=== PATIENT | female | born 1945 | race African-American/Black ===

== ENCOUNTER → 2023-05-30 | Outpatient (CLI) | payer OTHER, MEDICAID ==
[~2023-05-30] MED LIST: BUPIVACAINE HCL 0.25% P/F 10 ML VIAL ONE; IOHEXOL 300 MG/ML 100ML BOTTLE IJ ONE; LIDOCAINE 2%HCL (LOCAL ANESTH.) INJ 10ml MDV ONE; methylPREDNISolone ACETATE 80 MG/ML VL ONE
== END | disposition home or self-care (01) ==
LOC: XYW 09:28
PROVIDERS: ATTEND Orthopaedic Surgery Sports Medicine
DX: M25.511 Pain in right shoulder (principal)
CPT/HCPCS: 20610; 73020; 77002; J1040; J2001; J3490; Q9967

== ENCOUNTER 2025-06-29 13:11 | Outpatient (CLI) | payer OTHER, MEDICAID ==
[~2025-06-29 13:11] MED LIST changes: +BACL10TA PO; -BUPIVACAINE HCL 0.25% P/F 10 ML VIAL ONE; -IOHEXOL 300 MG/ML 100ML BOTTLE IJ ONE; -LIDOCAINE 2%HCL (LOCAL ANESTH.) INJ 10ml MDV ONE; +METH4PAK PO; -methylPREDNISolone ACETATE 80 MG/ML VL ONE
[2025-06-29 14:06] LABS: Base Excess 0.4 mmol/L (-2.0-3.0)
== END 2025-06-29 17:00 | disposition home or self-care (01) ==
LOC: RT 13:11
PROVIDERS: ATTEND Nurse Practitioner Family
DX: R06.02 Shortness of breath (principal)
CPT/HCPCS: 36600; 82805

== ENCOUNTER 2025-07-31 12:01 | Emergency (ER) | payer OTHER, MEDICAID ==
[~2025-07-31] VITALS: Ht 160 cm; Wt 77.1 kg
--- NOTE | 2025-07-31 12:27 | ED.PDOC ---
SOB-HPI HPI Comments 80 year old female with PMHx CHF, HTN presents to the ED with a chief complaint of cough onset 1 month. Patient states she has been experiencing cough, nasal congestion, shortness of breath for the past month. Has seen PCP, was sent for CXR with negative results. Patient states symptoms have worsened. Upon ED arrival O2 sat was 90% on RA, was placed on 2L improved to 97%. Denies nausea, vomiting, diarrhea, headache, dizziness, chest pain, fever, chills, sore throat, dysuria, hematuria. No other symptoms or modifying factors present at this time. Chief Complaint: Cough Time Seen by MD: 12:20 Primary Care Provider: EDYTA Marroquin notes: Medications, Allergies Information Source: Patient Mode of Arrival: Ambulatory Severity: Moderate Timing: Months Duration: Since onset Context: At Rest PE Risk Factors: None History of: CHF Prehospital treatment: None Modifying Factors: Nothing Associated Signs and Symptoms: Nasal Congestion Past Medical History PAST MEDICAL HISTORY: CHF, HTN Surgical History: Denies all surgeries VACATION GUIDE History: No Pertinent VACATION GUIDE History Family History Family History: Unknown Social History Smoker: Non-Smoker Alcohol: Denies ETOH Use Drugs: Denies Drug Use Lives In: Home Constitutional: denies: chills, diaphoresis, fatigue, fever, malaise, sweats, weakness, others EENTM: reports: nose congestion; denies: blurred vision, double vision, ear bleeding, ear discharge, ear drainage, ear pain, ear ringing, eye pain, eye redness, hearing loss, mouth pain, mouth swelling, nasal discharge, nose bleeding, nose pain, photophobia, tearing, throat pain, throat swelling, voice changes, others Respiratory: reports: shortness of breath; denies: cough, hemoptysis, orthopnea, SOB at rest, SOB with excertion, stridor, wheezing, others Cardiovascular: denies: chest pain, dizzy spells, diaphoresis, Dyspnea on exertion, edema, irregular heart beat, left arm pain, lightheadedness, palpitations, PND, syncope, others Gastrointestinal: denies: abdomen distended, abdominal pain, blood streaked bowels, constipated, diarrhea, dysphagia, difficulty swallowing, hematemesis, melena, nausea, poor appetite, poor fluid intake, rectal bleeding, rectal pain, vomiting, others Genitourinary: denies: abnormal vagina bleeding, burning, dyspareunia, dysuria, flank pain, frequency, hematuria, incontinence, pain, , vagina discharge, urgency, others Neurological: denies: dizziness, fainting, headache, left sided numbness, left sided weakness, numbness, paresthesia, pre-existing deficit, right sided numbness, right sided weakness, seizure, speech problems, tingling, tremors, weakness, others Musculoskeletal: denies: back pain, gout, joint pain, joint swelling, muscle pain, muscle stiffness, neck pain, others Integumetry: denies: bruises, change in color, change in hair/nails, dryness, laceration, lesions, lumps, rash, wounds, others Allergic/Immunocompromised: denies: Difficulty Healing, Frequent Infections, Hives, Itching, others Hematologic/Lymphatic: denies: anemia, blood clots, easy bleeding, easy bruising, swollen glands, others Endocrine: denies: excessive hunger, excessive sweating, excessive thirst, excessive urination, flushing, intolerance to cold, intolerance to heat, unexplained weight gain, unexplained weight loss, others Psychiatric: denies: anxiety, bipolar disorder, depression, hopeless, panic disorder, schizophrenia, sleepless, suicidal, others All Other Systems: Reviewed and Negative Physical Exam General Appearance: Moderate Distress, Normal HEENT: Normal ENT Inspection, Pharynx Normal, TMs Normal Neck: Full Range of Motion, Non-Tender, Normal, Normal Inspection Respiratory: Accessory Muscle Use, Chest Non-Tender, Respiratory Distress, Other (Coarse breath sounds) Cardiovascular: No Edema, No JVD, No Murmur, No Gallop, Normal Peripheral Pulses, Regular Rate/Rhythm Breast Exam: Deferred Gastrointestinal: No Organomegaly, Non Tender, No Pulsatile Mass, Normal Bowel Sounds, Soft Genitalia: Deferred Pelvic: Deferred Rectal: Deferred Extremities: No calf tenderness, Normal capillary refill, Normal inspection, Normal range of motion, Non-tender, No pedal edema Musculoskeletal : Apperance: Normal Neurologic: Alert, log sorter II-XII nml as Tested, No Motor Deficits, Normal Affect, Normal Mood, No Sensory Deficits Cerebellar Function: NOT DONE Reflexes: NOT DONE Skin: Dry, Normal Color, Warm Peripheral Pulses: 3+ Radial (R), 3+ Radial (L) Lymphatic: No Adenopathy Was a procedure done? Was a procedure done?: No Differential Dx Differential Diagnosis: Anxiety, Asthma, Bronchitis X-Ray, Labs, Meds, VS Vital Signs Date Time Temp Pulse Resp B/P (MAP) Pulse Ox O2 Delivery O2 Flow Rate FiO2 07/31/25 12:28 98.4 71 17 147/57 (87) 96 98.4 07/31/25 12:28 96 Nasal Cannula 2.0 07/31/25 12:08 98.1 72 20 188/79 90 98.1 Lab Test 07/31/25 14:09 07/31/25 12:23 Range/Units Urine Color Pending Urine Clarity Pending Urine pH Pending Urine Specific Talmage Pending Urine Protein Pending Urine Ketones Pending Urine Blood Pending Urine Nitrite Pending Urine Bilirubin Pending Urine Urobilinogen Pending Urine Leukocyte Esterase Pending Urine RBC Pending Urine Microscopic WBC Pending Urine Squamous Epithelial Cells Pending Urine Bacteria Pending Urine Glucose Pending White Blood Count 11.9 H 4.4-10.8 10^3/uL Red Blood Count 4.44 4.0-5.20 10^6/uL Hemoglobin 12.3 12.2-16.2 g/dL Hematocrit 37.6 36.0-46.0 % Mean Corpuscular Volume 84.6 80.0-100.0 fL Mean Corpuscular Hemoglobin 27.7 L 28.0-32.0 pg Mean Corpuscular Hemoglobin Concent 32.7 32.0-36.0 g/dL Red Cell Distribution Width 15.0 H 11.8-14.3 % Platelet Count 269 140-450 10^3/uL Mean Platelet Volume 9.1 6.9-10.8 fL Neutrophils (%) (Auto) 68.0 37.0-80.0 % Lymphocytes (%) (Auto) 21.0 10.0-50.0 % Monocytes (%) (Auto) 10.0 0.0-12.0 % Eosinophils (%) (Auto) 0.5 0.0-7.0 % Basophils (%) (Auto) 0.5 0.0-2.0 % Neutrophils # (Auto) 8.1 1.6-8.6 10 ^3/uL Lymphocytes # (Auto) 2.5 0.4-5.4 10 ^3/uL Monocytes # (Auto) 1.2 0-1.3 10 ^3/uL Eosinophils # (Auto) 0.1 0-0.8 10 ^3/uL Basophils # (Auto) 0.1 0-0.2 10 ^3/uL Nucleated Red Blood Cells 0.1 % Sodium Level 144 136-145 mmol/L Potassium Level 4.0 3.5-5.1 mmol/L Chloride Level 105 98-107 mmol/L Carbon Dioxide Level 30 20-31 mmol/L Anion Gap 9 5-15 Blood Urea Nitrogen 30 H 9-23 mg/dL Creatinine 1.20 H 0.550-1.02 mg/dL Glomerular Filtration Rate Calc 46 >90 mL/min BUN/Creatinine Ratio 25.0 H 10.0-20.0 Serum Glucose 118 H 74-106 mg/dL Calcium Level 9.6 8.7-10.4 mg/dL Troponin I High Sensitivity 12 </=34 ng/L Current Medications Medications (Trade) Dose Ordered Sig/Cydney Route Start Time Stop Time Status Last Admin Methylprednisolone Sodium Succinate (Solu Medrol) 125 mg ONCE ONCE IV 07/31/25 13:30 07/31/25 13:31 DC 07/31/25 14:01 Ceftriaxone Sodium 50 ml @ 100 mls/hr ONCE ONCE IV 07/31/25 13:30 07/31/25 13:59 DC 07/31/25 14:06 Patient alert. Placed on oxygen. Complaining of shortness a breath. Blood pressure slightly elevated. Cardiac marker within normal limits. Renal function elevated. WBC elevated. Possible pneumonia. Possible pneumonitis. Continue oxygen. Was given steroid. Was given Lasix. Acute respiratory distress. Explained to the patient. Continue monitoring .[place] [address] Ph: [phone] DIAGNOSTIC IMAGING Diagnostic Imaging Report : [id number] Signed PATIENT: CAROL LOUIS ACCT: [id number] UNIT: [id number] : 1945 LOC: ER ROOM / BED: / AGE / SEX: 80 / F ADM STATUS: REG ER SERVICE 1213 ORDERING PHYSICIAN: ERNESTO PERRY MD PROCEDURE(s): CXRP - CHEST PORTABLE REASON: cough ORDER NUMBER(s): [id number], ACCESSION NUMBER(s): [id number] CHEST RADIOGRAPH INDICATION: cough TECHNIQUE: Single frontal view of the chest was obtained COMPARISON: None FINDINGS: Lines and Tubes: None Lungs: Mildly increased interstitial markings both lung bases. Pleura: No effusion. No pneumothorax. Cardiomediastinal contours: Moderate cardiomegaly. Moderate calcification of the aortic knob. Bones: Unremarkable IMPRESSION: 1. Moderate cardiomegaly with mildly increased interstitial markings in both lung bases. ATED BY: SYLVESTER STAFFORD MD DICTATED DATE/TIME: 07/31/25 140 SIGNED BY: SYLVESTER STAFFORD MD SIGNED DATE/TIME: 07/31/25 140 CC: Time of 1ST Reevaluation: 12:50 Reevaluation 1ST: Unchanged Patient Education/Counseling: Diagnosis, Treatment, Prognosis Family Education/Counseling: No Family Present SEPSIS Sepsis Screen Date sepsis recognized/suspect: Jul 31, 2025 Time Sepsis recognized/suspect: 1210 Recent Procedure: No On Antibiotic Therapy: No Respiratory Rate >20: No Heart Rate >90: No Temp<36 C (96.8 F) or >38.3 C: No SBP <90 or MAP <65 mmHG: No New Acute Mental Status Change: No Is the patient on CPAP, BIPAP,: No Physician Orders Chest Portable (07/31/25 12:13) Urinalysis (07/31/25 12:13) Blood Culture (07/31/25 13:18) Lactic Acid W/ Reflex Order (07/31/25 13:18) Azithromycin 500mg/250ml (Zithromax 500m (07/31/25 13:30) Vital Signs Date Time Temp Pulse Resp B/P (MAP) Pulse Ox O2 Delivery O2 Flow Rate FiO2 07/31/25 12:28 98.4 71 17 147/57 (87) 96 98.4 07/31/25 12:28 96 Nasal Cannula 2.0 07/31/25 12:08 98.1 72 20 188/79 90 98.1 Laboratory Tests Test 07/31/25 12:23 White Blood Count 11.9 10^3/uL (4.4-10.8) H Medications Medications Dose Ordered Sig/Cydney Route Start Time Stop Time Status Last Admin Dose Admin Ceftriaxone Sodium 50 ml @ 100 mls/hr ONCE ONCE IV 07/31/25 13:30 07/31/25 13:59 DC 07/31/25 14:06 Methylprednisolone Sodium Succinate 125 mg ONCE ONCE IV 07/31/25 13:30 07/31/25 13:31 DC 07/31/25 14:01 Departure 1 Departure Time of Disposition: 13:34 Impression: Primary Impression: CHF (congestive heart failure) Qualified Codes: I50.43 - Acute on chronic combined systolic (congestive) and diastolic (congestive) heart failure Additional Impressions: Chronic kidney disease, stage III (moderate) Qualified Codes: N18.30 - Chronic kidney disease, stage 3 unspecified Acute respiratory failure Qualified Codes: J96.01 - Acute respiratory failure with hypoxia Hypertensive urgency Disposition: ADMITTED INPATIENT Admit to: Med Surg Condition: Guarded Critical Care Note Critical Care Time?: Yes (90 min-critical care time only) Stability Stability form required: No Heart Score Heart Score: Heart Score Response (Comments) Value History Slightly Suspicious 0 EKG Normal 0 Age >65 2 Risk Factors >3 or Hx ASHD 2 Troponin Normal limit 0 Total 4 I personally scribed for ERNESOT PERRY MD ([email or web address]) on 07/31/25 at 12:27. Electronically submitted by Rosie Gallagher ([email or web address]). I personally scribed for ERNESTO PERRY MD ([email or web address]) on 07/31/25 at 14:11. Electronically submitted by Rosie Gallagher ([email or web address]). ERNESTO PERRY MD Jul 31, 2025 12:27
[2025-07-31 12:28] VITALS: BP 147/57; PULSE 71; TEMP 98.4
[2025-07-31 12:39] LABS: Hematocrit 37.6 % (36.0-46.0); Hemoglobin 12.3 g/dL (12.2-16.2); Mean Corpuscular Hemoglobin 27.7 pg (28.0-32.0); Mean Corpuscular Volume 84.6 fL (80.0-100.0); Nucleated Red Blood Cells % 0.1 %
[2025-07-31 12:49] LABS: Chloride 105 mmol/L (98-107); Potassium 4.0 mmol/L (3.5-5.1); Sodium 144 mmol/L (136-145)
[2025-07-31 12:50] LABS: Anion Gap 9 (5-15); Calcium 9.6 mg/dL (8.7-10.4); Carbon Dioxide 30 mmol/L (20-31)
[2025-07-31 12:55] LABS: BUN/Creatinine Ratio 25.0 (10.0-20.0)
[2025-07-31 12:56] LABS: Blood Urea Nitrogen 30 mg/dL (9-23); Glucose 118 mg/dL (74-106)
[2025-07-31] MEDS: methylPREDNISolone SOD SUCC 125 MG/2 ML VL IV ONE (14:01)
--- NOTE | 2025-07-31 14:03 | DVH ---
CHEST RADIOGRAPH INDICATION: cough TECHNIQUE: Single frontal view of the chest was obtained COMPARISON: None FINDINGS: Lines and Tubes: None Lungs: Mildly increased interstitial markings both lung bases. Pleura: No effusion. No pneumothorax. Cardiomediastinal contours: Moderate cardiomegaly. Moderate calcification of the aortic knob. Bones: Unremarkable IMPRESSION: 1. Moderate cardiomegaly with mildly increased interstitial markings in both lung bases.
[2025-07-31 14:28] LABS: Urine Protein, UAD Negative (Negative)
[2025-07-31] MEDS: AZITHROMYCIN 500MG/250ML 250 ML IV ONE (14:36)
[2025-07-31] MEDS: FUROSEMIDE 40 MG/4 ML VIAL IV ONE (14:50)
[2025-07-31 15:54] VITALS: RESP 20; O2SAT 92
[2025-07-31] MEDS: ALBUTEROL SULF 2.5 MG/0.5ML(0.5%) NEB SOLN NEB ONE (16:00)
[2025-07-31] MEDS: IPRATROPIUM BROM 0.5 MG/2.5ML INH SOL NEB ONE (16:00)
[2025-07-31] MEDS ORDERED: AZIT500T66 PO (16:07)
== END 2025-07-31 17:19 | disposition left against medical advice (07) ==
LOC: ER 12:01
DX: I13.0 Hypertensive heart and chronic kidney disease with heart failure and stage 1 through stage 4 chronic kidney disease, or unspecified chronic kidney disease (principal); N18.30 Chronic kidney disease, stage 3 unspecified; I50.9 Heart failure, unspecified; J96.01 Acute respiratory failure with hypoxia; I16.0 Hypertensive urgency
CPT/HCPCS: 36415; 71045; 80048; 81001; 83605; 84484; 85025; 87040; 94640; 96365; 96366; 96367; 96375; 99284; J0456; J0696; J2919; 99291; 99292